=== PATIENT | male | born 1985 | race Caucasian/White ===

== ENCOUNTER 2016-09-29 12:01 | Emergency (ER) | payer SELFPAY ==
[2016-09-29 12:05] VITALS: BP 137/60; PULSE 86; TEMP 98.7; BMI 28.3
--- NOTE | 2016-09-29 13:28 | PDOC ---
History of Present Illness - General Chief Complaint: Injury Stated Complaint: RIGHT FOOT INJURY Time Seen by Provider: 09/29/16 12:15 History Source: Patient Exam Limitations: No Limitations - History of Present Illness Initial Comments: 09/29/16 13:28 30-year-old male presents to ED with right heel pain worsened with ambulation since Tuesday. Patient states has had pain to his heel before which normally resolves with time but states after playing basketball on Tuesday the pain continues Patient states pain is aching and dull without radiation. Patient has no other complaints at this time and states is able to ambulate. Occurred: reports: other Severity: reports: mild Pain Location: reports: lower extremity Method of Injury: Yes: unknown Associated Symptoms (Fall): denies symptoms Past History - Past Medical History Allergies/Adverse Reactions: Allergies Allergy/AdvReac Type Severity Reaction Status Date / Time No Known Allergies Allergy Verified 09/29/16 12:05 Home Medications: Ambulatory Orders NK [No Known Home Medication] 09/29/16 Other medical history: NONE - Psycho/Social/Smoking Cessation Hx Anxiety: No Suicidal Ideation: No Smoking History: Never smoked Hx Alcohol Use: Yes (SOCIAL) Drug/Substance Use Hx: No Substance Use Type: Marijuana Patient Lives Alone: No Lives with/in: parents Review of Systems - Review of Systems Able to Perform ROS?: Yes Constitutional: No: Symptoms Reported Musculoskeletal: Yes: Joint Pain (right heel) Integumentary: No: Symptoms Reported Neurological: No: Symptoms reported Endocrine: No: Symptoms Reported Hematologic/Lymphatic: No: Symptoms Reported *Physical Exam - Vital Signs Last Vital Signs Temp Pulse Resp BP Pulse Ox 98.7 F 86 20 137/60 98 09/29/16 12:03 09/29/16 12:03 09/29/16 12:03 09/29/16 12:03 09/29/16 12:03 - Physical Exam General Appearance: Yes: Nourished, Appropriately Dressed. No: Apparent Distress Vascular Pulses: Dorsalis-Pedis (R): 2+ Extremity: positive: Normal Capillary Refill, Normal Inspection, Normal Range of Motion, Tender (to palmar aspect of right calcaneus) Neurologic: positive: Fully Oriented, Motor Strength 5/5 (Ambulatory) ED Treatment Course - RADIOLOGY Radiology Studies Ordered: Category Date Time Status FOOT-RIGHT [RAD] Stat Radiology 09/29/16 12:43 Taken Medical Decision Making - Medical Decision Making 09/29/16 13:02 Patient complains of heel pain after playing basketball but states has had pain to this area before. Patient exhibited point tenderness to the palmar aspect of right calcaneus. Patient ordered for x-ray. 09/29/16 13:32 X-ray negative for acute findings. Patient be given a referral to Dr. Zurita [employer] goods [employer] tech, *DC/Admit/Observation/Transfer Diagnosis at time of Disposition: Heel pain Qualifiers: Laterality: right Qualified Code(s): M79.671 - Pain in right foot - Discharge Dispostion Disposition: HOME Condition at time of disposition: Good - Referrals Referrals: Regulo Hammer MD [Staff Physician] - - Patient Instructions Printed Discharge Instructions: Heels That Hurt Additional Instructions: May take Motrin for discomfort and please follow-up with referred [employer] goods appliance tech as this may require proper fitting shoes or shoe inserts. your x-ray was negative for abnormal findings
== END 2016-09-29 13:37 | disposition home or self-care (01) ==
LOC: JERFT 12:01
DX: M79.671 Pain in right foot (principal); X50.0XXA Overexertion from strenuous movement or load, initial encounter; X50.9XXA Other and unspecified overexertion or strenuous movements or postures, initial encounter; Y93.67 Activity, basketball; Y92.310 Basketball court as the place of occurrence of the external cause; Y99.8 Other external cause status
CPT/HCPCS: 73630-TC-RT; 99281-25

== ENCOUNTER 2021-05-16 17:21 | Emergency (ER) | payer OTHER ==
[2021-05-16 17:51] VITALS: BP 116/72; PULSE 69; TEMP 98; BMI 31.1
[2021-05-16] MEDS ORDERED: KETOROLAC TROMETHAMINE 30 MG/1 ML VIAL IVPUSH ONE (18:05)
[2021-05-16] MEDS ORDERED: KETOROLAC TROMETHAMINE 30 MG/1 ML VIAL ONE (18:22)
[2021-05-16 18:30] LABS: BASO % 0.5 % (0-2.0); HEMATOCRIT 43.9 % (35.4-49); HEMOGLOBIN 15.1 GM/dL (11.7-16.9); LYMPH % 15.6 % (8-40); MCH 29.7 pg (25.7-33.7); MCHC 34.4 g/dl (32.0-35.9); MEAN CELL VOLUME 86.5 fl (80-96); MEAN PLT VOLUME 7.3 fl (7.5-11.1); NEUT % 77.9 % (42.8-82.8); PLATELET COUNT 411 10^3/uL (134-434); RBC 5.08 M/mm3 (4.00-5.60); RDW 13.7 % (11.9-15.9); WHITE BLOOD COUNT 10.6 K/mm3 (4.0-10.0)
[2021-05-16 19:00] LABS: ALBUMIN 4.2 g/dl (3.4-5.0); BLOOD UREA NITROGEN 14.4 mg/dL (7-18); CALCIUM 9.4 mg/dL (8.5-10.1)
[2021-05-16 19:03] LABS: CREATININE 0.8 mg/dL (0.55-1.3)
[2021-05-16 19:04] LABS: BILIRUBIN,TOTAL 0.3 mg/dL (0.2-1); TOT PROT 8.2 g/dl (6.4-8.2)
[2021-05-16] MEDS ORDERED: KETOROLAC TROMETHAMINE 30 MG/1 ML VIAL IM ONE (19:38)
== END 2021-05-16 21:12 | disposition home or self-care (01) ==
LOC: JER 17:21
PROC: 3E0233Z Introduction of Anti-inflammatory into Muscle, Percutaneous Approach (ICD-10-PCS; principal; 2021-05-16)
DX: R10.13 Epigastric pain (principal)
CPT/HCPCS: 36415; 76705-TC; 80053; 83690; 85025; 99284-25

== ENCOUNTER 2022-05-03 06:55 | Emergency (ER) | payer OTHER ==
[2022-05-03 07:28] VITALS: BP 113/68; PULSE 89; RESP 20; TEMP 99.3; BMI 30.9
[2022-05-03] MEDS ORDERED: ONDANSETRON 4 MG/2 ML VIAL IVPUSH ONE (07:55)
[2022-05-03] MEDS ORDERED: MAG HYDROX/AL HYDROX/SIMETH -MYLANTA- ORAL SUSPENSION PO ONE (07:55)
[2022-05-03] MEDS ORDERED: ONDANSETRON *ODT* 4 MG TABLET SL ONE (07:56)
[2022-05-03] MEDS ORDERED: FAMOTIDINE 20 MG TABLET PO ONE (07:56)
[2022-05-03] MEDS ORDERED: FAMOTIDINE 20 MG TABLET ONE (08:22)
[2022-05-03] MEDS ORDERED: MAG HYDROX/AL HYDROX/SIMETH 30 ML UNIT-DOSE CUP ONE (08:23)
[2022-05-03] MEDS ORDERED: ONDANSETRON *ODT* 4 MG TABLET ONE (08:23)
== END 2022-05-03 09:21 | disposition home or self-care (01) ==
LOC: JER 06:55
DX: R11.2 Nausea with vomiting, unspecified (principal); R19.7 Diarrhea, unspecified
CPT/HCPCS: 0241U-QW; 99283-25; Q0162

== ENCOUNTER 2024-01-11 23:42 | Emergency (ER) | payer SELFPAY ==
[2024-01-11 23:54] VITALS: BP 144/85; PULSE 82; RESP 16; TEMP 98.6; BMI 30.9
[2024-01-12] MEDS ORDERED: LIDOCAINE 4% PATCH TP ONE (00:13)
[2024-01-12] MEDS ORDERED: KETOROLAC TROMETHAMINE 30 MG/1 ML VIAL ONE (00:13)
[2024-01-12] MEDS: KETOROLAC TROMETHAMINE 30 MG/1 ML VIAL IM ONE (00:18)
[2024-01-12] MEDS: LIDOCAINE 4% PATCH TP ONE (00:24)
[2024-01-12] MEDS ORDERED: LIDOCAINE 4% PATCH TP SCH (10:00)
[2024-01-12] MEDS ORDERED: LIDOCAINE PATCH REMOVAL MC SCH (22:00)
== END 2024-01-12 01:02 | disposition home or self-care (01) ==
LOC: JER 23:42
PROC: 3E0133Z Introduction of Anti-inflammatory into Subcutaneous Tissue, Percutaneous Approach (ICD-10-PCS; principal; 2024-01-12)
DX: M25.511 Pain in right shoulder (principal); Y93.67 Activity, basketball
CPT/HCPCS: 73030-TC-RT-FY; 99284-25